=== PATIENT | female | born 1965 | race Caucasian/White ===

== ENCOUNTER 2019-06-28 19:13 | Emergency (ER) | payer MEDICAID, OTHER ==
[2019-06-28] MEDS ORDERED: HYDROmorphone 1 MG/ML Syringe IVPUSH ONE (19:55)
[2019-06-28] MEDS ORDERED: Ondansetron 4 MG/2 ML SDV IVPUSH ONE (19:56)
[2019-06-28] MEDS ORDERED: Sodium Chloride 0.9% 1,000 ML IV SCH (20:00)
--- NOTE | 2019-06-28 20:17 | EDM.PDOC ---
ED HPI GENERAL MEDICAL PROBLEM - General Chief Complaint: General Stated Complaint: PAIN UPPER RT SIDE Time Seen by Provider: 06/28/19 19:21 Source of Information: Reports: Patient, RN History Limitations: Reports: No Limitations - History of Present Illness INITIAL COMMENTS - FREE TEXT/NARRATIVE: chief complaint: right upper quadrant abdominal pain This is a 53 year female presents to ER with her Sister, She reports woke up well this morning, ate lunch didn't feel too well but resolved, then this evening ate pork ribs meal then develops acute right upper abdominal pain. Rates pain at 10 out of 10. the pain comes in waves, feels nauseated. reports history of kidney stones but this is different more intense pain. reports this has not happened to her before. Onset: Today, Sudden Onset Date: 06/28/19 Duration: Hour(s):, Getting Worse Location: Reports: Abdomen (right upper abdomen) Quality: Reports: Sharp, Stabbing Improves with: Reports: None Worsens with: Reports: Movement Associated Symptoms: Reports: Loss of Appetite, Nausea/Vomiting - Related Data Allergies Allergy/AdvReac Type Severity Reaction Status Date / Time Iodine and Iodide Containing Allergy Anaphylactic Verified 06/28/19 19:41 Produc Shock Home Meds: Home Meds Citalopram Hydrobromide [Celexa] 1 tab PO DAILY 06/28/19 [History] hydrOXYzine HCL [Hydroxyzine HCl] 1 tab PO DAILY 06/28/19 [History] lamoTRIgine [Lamictal] 1 tab PO DAILY 06/28/19 [History] Past Medical History Genitourinary History: Reports: Renal Calculus - Past Surgical History Female Surgical History: Reports: Hysterectomy Musculoskeletal Surgical History: Reports: Carpal Tunnel Social & Family History - Tobacco Use Smoking Status *Q: Never Smoker - Recreational Drug Use Recreational Drug Use: No Drug Use in Last 12 Months: No ED ROS GENERAL - Review of Systems Review Of Systems: See Below Constitutional: Reports: Malaise, Decreased Appetite HEENT: Reports: No Symptoms, Glasses Respiratory: Reports: No Symptoms Cardiovascular: Reports: No Symptoms Endocrine: Reports: No Symptoms GI/Abdominal: Reports: Abdominal Pain, Decreased Appetite, Nausea : Reports: No Symptoms Musculoskeletal: Reports: No Symptoms Skin: Reports: No Symptoms Neurological: Reports: No Symptoms Psychiatric: Reports: No Symptoms Hematologic/Lymphatic: Reports: No Symptoms Immunologic: Reports: No Symptoms ED EXAM, GENERAL - Physical Exam Exam: See Below Exam Limited By: No Limitations General Appearance: Alert, WD/WN, Severe Distress (laying on left side, curled up and holding right side.) Eye Exam: Bilateral Eye: EOMI, PERRL Ears: Normal External Exam Ear Exam: Bilateral Ear: Auricle Normal, Canal Normal, TM normal Nose: Normal Inspection, Normal Mucosa, No Blood Throat/Mouth: Normal Inspection, Normal Lips, Normal Teeth, Normal Gums, Normal Oropharynx, Normal Voice, No Airway Compromise Head: Atraumatic, Normocephalic Neck: Normal Inspection, Supple, Non-Tender, Full Range of Motion Respiratory/Chest: No Respiratory Distress, Lungs Clear, Normal Breath Sounds, No Accessory Muscle Use, Chest Non-Tender Cardiovascular: Normal Peripheral Pulses, Regular Rate, Rhythm, No Edema, No Gallop, No JVD, No Murmur, No Rub Peripheral Pulses: 2+: Radial (L), Radial (R), Dorsalis Pedis (L), Dorsalis Pedis (R) GI/Abdominal: Guarding (right upper abdomen), Tender, Other (positive Marino's sign) (Female) Exam: Deferred Rectal (Female) Exam: Deferred Back Exam: Normal Inspection, Full Range of Motion, Muscle Spasm (right upper back tense) Extremities: Normal Inspection, Normal Range of Motion, Non-Tender, Normal Capillary Refill, No Pedal Edema Neurological: No Motor/Sensory Deficits Psychiatric: Tearful Skin Exam: Warm, Dry, Intact, Normal Color, No Rash Lymphatic: No Adenopathy Course - Vital Signs Last Recorded V/S: Last Vital Signs Temp 36.7 C 06/28/19 19:48 Pulse 78 06/28/19 19:48 Resp 16 06/28/19 19:48 BP 146/72 H 06/28/19 19:48 Pulse Ox 98 06/28/19 19:48 - Orders/Labs/Meds Orders: Active Orders 24 hr Category Date Time Status Abdomen Ltd [US] Urgent Exams 06/28/19 19:54 Taken UA W/MICROSCOPIC [URIN] Urgent Lab 06/28/19 19:34 Ordered Magnesium Citrate [Citrate of Magnesia] Med 06/28/19 22:15 Once 296 ml PO ONETIME ONE Sodium Chloride 0.9% [Normal Saline] 1,000 ml Med 06/28/19 20:00 Active IV ASDIRECTED Medication Orders Sodium Chloride (Normal Saline) 1,000 mls @ 999 mls/hr IV ASDIRECTED FABIO Last Admin: 06/28/19 20:57 Dose: 999 mls/hr Labs: Laboratory Tests 06/28/19 06/28/19 Range/Units 20:03 20:03 WBC 6.3 (4.5-11.0) K/uL RBC 4.52 (3.30-5.50) M/uL Hgb 13.3 (12.0-15.0) g/dL Hct 40.1 (36.0-48.0) % MCV 89 (80-98) fL MCH 29 (27-31) pg MCHC 33 (32-36) % Plt Count 216 (150-400) K/uL Neut % (Auto) 50 (36-66) % Lymph % (Auto) 40 (24-44) % [place] % (Auto) 7 H (2-6) % Eos % (Auto) 2 (2-4) % Baso % (Auto) 1 (0-1) % Sodium 139 L (140-148) mmol/L Potassium 3.8 (3.6-5.2) mmol/L Chloride 102 (100-108) mmol/L Carbon Dioxide 31 (21-32) mmol/L Anion Gap 9.8 (5.0-14.0) mmol/L BUN 14 (7-18) mg/dL Creatinine 1.2 H (0.6-1.0) mg/dL Est Cr Clr Drug Dosing 41.38 mL/min Estimated GFR (MDRD) 47 L (>60) Glucose 106 (74-106) mg/dL Calcium 8.8 (8.5-10.1) mg/dL Magnesium 1.9 (1.8-2.4) mg/dL Total Bilirubin 0.3 (0.2-1.0) mg/dL AST 15 (15-37) U/L ALT 28 (12-78) U/L Alkaline Phosphatase 103 (46-116) U/L Total Protein 7.6 (6.4-8.2) g/dL Albumin 3.8 (3.4-5.0) g/dL Globulin 3.8 H (2.3-3.5) g/dL Albumin/Globulin Ratio 1.0 L (1.2-2.2) Amylase 58 (25-115) U/L Lipase 257 (73-393) U/L Meds: Medications Generic Name Dose Route Start Last Admin Trade Name Tim PRN Reason Stop Dose Admin Sodium Chloride 1,000 mls @ 999 mls/hr 06/28/19 20:00 06/28/19 20:57 Normal Saline IV 999 mls/hr ASDIRECTED FABIO Administration Discontinued Medications Generic Name Dose Route Start Last Admin Trade Name Tim PRN Reason Stop Dose Admin Hydromorphone HCl 1 mg 06/28/19 19:55 06/28/19 20:56 Dilaudid IVPUSH 06/28/19 19:56 1 mg ONETIME ONE Administration Ondansetron HCl 4 mg 06/28/19 19:56 06/28/19 20:56 Zofran IVPUSH 06/28/19 19:57 4 mg ONETIME ONE Administration - Re-Assessments/Exams Free Text/Narrative Re-Assessment/Exam: 06/28/19 20:24 discussed with Ms. Rebolledo -will evaluated for gallbladder disease -labs, cbc, cmp, amylase, lipase, mg++,urine with micro -ultrasound limited abdomen to rule out gallbladder disease -medicate for pain: IV Normal Saline 999ml/hr, IV Dilaudid 1 mg now, IV Zofran 4 mg now, IV Protonix 40 mg now Ms. Rebolledo agrees with plan of care. 06/28/19 21:15 labs- no acute findings Ultrasound abdomen- no findings will ordered Abdomen-pelvis without contrast to further evaluate given Dilaudid, Zofran and IV fluids for comfort- appears more comfortable Ms. Rebolledo agrees with plan of care. 06/28/19 22:16 CT abdomen pelvis- preliminary report: small bilateral pleural effusion with mild bibasilar opacity. moderate stool in the colon. small stone left. kidney. The abdominal IVC and plevic deep venous system diffusely very small in caliber except for the common femoral veins. small amount of free fluid in brian pelvis posteriorly of uncertain etiology. appendix is normal. few colonic diverticula without evidence of diverticulitis. uterus is absent. discussed result with Ms. Rebolledo, will treat for constipation. advise to return to ER if develops any fever, chills, nausea, vomiting, increase pain, or has any concerns. Ms. Rebolledo agrees with plan of care. Departure - Departure Time of Disposition: 22:22 Disposition: Home, Self-Care 01 Condition: Good Clinical Impression: Constipation, Abdominal pain - Discharge Information *PRESCRIPTION DRUG MONITORING PROGRAM REVIEWED*: Not Applicable *COPY OF PRESCRIPTION DRUG MONITORING REPORT IN PATIENT DEMIAN: Not Applicable Instructions: Abdominal Pain, Adult, [id number], Constipation, Adult, Easy-to -Read Referrals: PCP,None [Primary Care Provider] - Forms: ED Department Discharge Care Plan Goals: Abdominal pain and Constipation -Magnesium Citrate when home drink half the bottle if no stool within 4 hours drink the other half of the bottle. drink plenty of fluids -rest -push fluids -high fibre diet -follow up in [facility] this week, will call [place], [place]. Return to ER for any fever, chills, nausea, vomiting, increase pain, not improved or any concerns. Sepsis Event Note - Evaluation Sepsis Screening Result: No Definite Risk - Focused Exam Vital Signs: Vital Signs Temp Pulse Resp BP Pulse Ox 06/28/19 19:48 36.7 C 78 16 146/72 H 98 06/28/19 19:29 36.7 C 78 16 146/72 H 98 Date Exam was Performed: 06/28/19 Time Exam was Performed: 22:16 - Problem List & Annotations (1) Abdominal pain SNOMED Code(s): 82428823 Code(s): R10.9 - UNSPECIFIED ABDOMINAL PAIN Status: Acute Priority: High Current Visit: Yes Qualifiers: Abdominal location: right upper quadrant Qualified Code(s): R10.11 - Right upper quadrant pain (2) Constipation SNOMED Code(s): 65686965 Code(s): K59.00 - CONSTIPATION, UNSPECIFIED Status: Acute Priority: High Current Visit: Yes Qualifiers: Constipation type: unspecified constipation type Qualified Code(s): K59.00 - Constipation, unspecified - Problem List Review Problem List Initiated/Reviewed/Updated: Yes - My Orders Last 24 Hours: My Active Orders 06/28/19 19:34 UA W/MICROSCOPIC [URIN] Urgent 06/28/19 19:54 Abdomen Ltd [US] Urgent 06/28/19 20:00 Sodium Chloride 0.9% [Normal Saline] 1,000 ml IV ASDIRECTED 06/28/19 22:15 Magnesium Citrate [Citrate of Magnesia] 296 ml PO ONETIME ONE - Assessment/Plan Last 24 Hours: My Active Orders 06/28/19 19:34 UA W/MICROSCOPIC [URIN] Urgent 06/28/19 19:54 Abdomen Ltd [US] Urgent 06/28/19 20:00 Sodium Chloride 0.9% [Normal Saline] 1,000 ml IV ASDIRECTED 06/28/19 22:15 Magnesium Citrate [Citrate of Magnesia] 296 ml PO ONETIME ONE Plan: Abdominal pain and Constipation -Magnesium Citrate when home drink half the bottle if no stool within 4 hours drink the other half of the bottle. drink plenty of fluids -rest -push fluids -high fibre diet -follow up in Primary Care Clinic this week, will call [facility] [place], [place]. Return to ER for any fever, chills, nausea, vomiting, increase pain, not improved or any concerns.
--- NOTE | 2019-06-28 22:06 | CRLCT ---
Indication: Right-sided abdominal pain. Patient has history of iodine contrast allergy. Technique: CT from the lung bases to the pubic symphysis without intravenous contrast. Please note that all CT scans at this facility use dose modulation, iterative reconstruction, and/or weight-based dosing when appropriate to reduce radiation dose to as low as reasonably achievable. Comparison: Comparisons Findings: Hepatobiliary: The liver demonstrates attenuation. The gallbladder is normal. Spleen: Normal. Pancreas: Normal. Adrenal glands: Right and left adrenal gland are normal. Kidneys: 3 millimeter nonobstructing calculus in left kidney is seen. There is no right or left hydronephrosis or suspicious mass. Pelvis: Urinary bladder is normal. There postoperative changes from hysterectomy. GI: There is a moderate amount of stool throughout the colon. The small bowel and stomach are normal. Vessels/lymph nodes: The abdominal aorta is normal in caliber. The IVC is small. There is no adenopathy. Soft tissues: There is no abdominal hernia. Bones: There are no lytic or blastic bone lesions. Lung bases: Mild bilateral dependent atelectasis is seen. Impression: 1. Postoperative changes from prior hysterectomy. 2. 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 3. Benign 2 millimeter nonobstructing calculus left kidney. Please note that all CT scans at this facility use dose modulation, iterative reconstruction, and/or weight-based dosing when appropriate to reduce radiation dose to as low as reasonably achievable. Dictated by Erwin Sears MD @ Jun 29 2019 9:48AM Signed by Dr. Erwin Sears @ Jun 29 2019 9:57AM
[2019-06-28] MEDS ORDERED: Magnesium Citrate Solution 296 ML Bottle PO ONE (22:15)
--- NOTE | 2019-06-29 12:42 | US ---
Abdomen Ltd CLINICAL HISTORY: Right upper quadrant pain COMPARISON: None. TECHNIQUE: Real-time images were obtained through the right upper quadrant. FINDINGS: The liver is free of mass or biliary dilatation. Echotexture is homogeneous throughout. The gallbladder has a normal appearance. The common bile duct measures 3 mm. The pancreas appears within normal limits. The right kidney has a normal appearance. The IVC is normal. IMPRESSION: Normal right upper quadrant ultrasound
== END 2019-06-28 22:40 | disposition home or self-care (01) ==
LOC: JP.ED 19:13
DX: K59.00 Constipation, unspecified (principal); Z91.041 Radiographic dye allergy status; Z79.899 Other long term (current) drug therapy
CPT/HCPCS: 36415; 74176; 76705; 80053; 82150; 83690; 83735; 85025; 96361; 96374; 96375; 99284; A9270; J1170; J2405; J7030

== ENCOUNTER 2020-09-09 13:38 | Emergency (ER) | payer MEDICAID ==
[2020-09-09] MEDS ORDERED: Ondansetron 4 MG/2 ML SDV IVPUSH ONE (14:13)
[2020-09-09] MEDS ORDERED: Sodium Chloride 0.9% 1,000 ML IV SCH (14:15)
--- NOTE | 2020-09-09 14:28 | EDM.PDOC ---
ED HPI GENERAL MEDICAL PROBLEM - General Chief Complaint: General Stated Complaint: MEDICAL VIA [facility] Time Seen by Provider: 09/09/20 14:00 Source of Information: Reports: Patient, EMS History Limitations: Reports: No Limitations - History of Present Illness INITIAL COMMENTS - FREE TEXT/NARRATIVE: This is a 54 year old female presenting after a syncopal episode. The patient reports that she donated blood earlier today, as she has done previously without complication in the past. She went to eat lunch after donating blood and about 20 minutes later she was sitting at the table eating when she suddenly felt dizzy and lightheaded, sweaty, nauseated. She reports that everything then went dark for a second or two, but she never fell to the floor or anything. She recalls somebody then asking her if she was ok. She did not have any chest pain or SOB prior to or with this episode. She does report that at the time of the event, she also developed a global severe headache that is still present. She reports that her whole body feels "shaky" and weak. She is still feeling somewhat nauseated as well. She reports that she has donated blood multiple times in the past and never had this happen before. However, she reports that today the process happened much quicker than usual and she was finished filling the bag more quickly than normal. - Related Data Allergies Allergy/AdvReac Type Severity Reaction Status Date / Time Iodine and Iodide Containing Allergy Severe Anaphylactic Verified 09/09/20 13:45 Produc Shock Home Meds: Home Meds Citalopram Hydrobromide [Celexa] 1 tab PO DAILY 06/28/19 [History] hydrOXYzine HCL [Hydroxyzine HCl] 1 tab PO DAILY 06/28/19 [History] lamoTRIgine [Lamictal] 1 tab PO DAILY 06/28/19 [History] Past Medical History Genitourinary History: Reports: Renal Calculus Other Musculoskeletal History: bilat elbow surgery Psychiatric History: Reports: Anxiety, Bipolar, Depression - Infectious Disease History Infectious Disease History: Reports: None - Past Surgical History Female Surgical History: Reports: Hysterectomy Musculoskeletal Surgical History: Reports: Carpal Tunnel Social & Family History - Tobacco Use Tobacco Use Status *Q: Never Tobacco User ED ROS GENERAL - Review of Systems Review Of Systems: See Below Constitutional: Reports: Diaphoresis. Denies: Fever, Chills HEENT: Reports: No Symptoms Respiratory: Reports: No Symptoms. Denies: Shortness of Breath Cardiovascular: Denies: Chest Pain Endocrine: Reports: No Symptoms GI/Abdominal: Reports: Nausea. Denies: Abdominal Pain, Vomiting Musculoskeletal: Reports: No Symptoms Skin: Reports: No Symptoms Neurological: Reports: Headache Psychiatric: Reports: No Symptoms Hematologic/Lymphatic: Reports: No Symptoms Immunologic: Reports: No Symptoms ED EXAM, GENERAL - Physical Exam Exam: See Below Exam Limited By: No Limitations General Appearance: Alert, No Apparent Distress Eye Exam: Bilateral Eye: PERRL Nose: Normal Inspection Throat/Mouth: Normal Inspection, Normal Voice, Other (MMM) Head: Atraumatic, Normocephalic Neck: Non-Tender, Full Range of Motion Respiratory/Chest: No Respiratory Distress, Lungs Clear, Normal Breath Sounds Cardiovascular: Regular Rate, Rhythm GI/Abdominal: Soft, Non-Tender Extremities: Normal Range of Motion, No Pedal Edema Neurological: Alert, Oriented, CN II-XII Intact, Normal Cognition, Normal Gait, No Motor/Sensory Deficits Psychiatric: Normal Affect, Normal Mood Skin Exam: Warm, Dry. No: Pallor #1 Interpretation EKG Date: 09/09/20 Time: 14:45 Rhythm: NSR P-Wave: Present Comparison: NA - No Prior EKG EKG Interpretation Comments: Minimal ST depression in the lateral leads #2 Interpretation EKG Date: 09/09/20 Time: 16:08 Rhythm: NSR P-Wave: Present Comparison: No Change EKG Interpretation Comments: Minimal ST depression in lateral leads - Unchanged from earlier EKG Course - Vital Signs Last Recorded V/S: Last Vital Signs Temp 97 F 09/09/20 13:54 Pulse 60 09/09/20 13:55 Resp 14 09/09/20 13:54 BP 103/62 09/09/20 13:55 Pulse Ox 98 09/09/20 13:54 Orthostatic Blood Pressure [ 131/71 Standing] Orthostatic Blood Pressure [ 123/68 Sitting] Orthostatic Blood Pressure [ 111/65 Supine] - Orders/Labs/Meds Orders: Active Orders 24 hr Category Date Time Status EKG Documentation Completion [RC] ASDIRECTED Care 09/09/20 14:12 Active EKG Documentation Completion [RC] ASDIRECTED Care 09/09/20 15:51 Active Orthostatic Vital Signs [RC] ASDIRECTED Care 09/09/20 14:14 Active Sodium Chloride 0.9% [Normal Saline] 1,000 ml Med 09/09/20 14:15 Active IV ASDIRECTED EKG 12 Lead [EK] Stat Ther 09/09/20 14:11 Ordered EKG 12 Lead [EK] Stat Ther 09/09/20 15:50 Ordered Medication Orders Sodium Chloride (Normal Saline) 1,000 mls @ 1,000 mls/hr IV ASDIRECTED FABIO Last Admin: 09/09/20 14:38 Dose: 1,000 mls/hr Documented by: [id number] Labs: Laboratory Tests 09/09/20 09/09/20 09/09/20 Range/Units 14:30 14:30 17:00 WBC 5.7 (4.5-11.0) K/uL RBC 4.11 (3.30-5.50) M/uL Hgb 11.1 L D (12.0-15.0) g/dL Hct 34.7 L (36.0-48.0) % MCV 84 (80-98) fL MCH 27 (27-31) pg MCHC 32 (32-36) % Plt Count 181 (150-400) K/uL Neut % (Auto) 59.3 (36-66) % Lymph % (Auto) 31.6 (24-44) % [place] % (Auto) 6.5 H (2-6) % Eos % (Auto) 2.4 (2-4) % Baso % (Auto) 0.2 (0-1) % Sodium 140 (140-148) mmol/L Potassium 4.0 (3.6-5.2) mmol/L Chloride 106 (100-108) mmol/L Carbon Dioxide 27 (21-32) mmol/L Anion Gap 7.1 (5.0-14.0) mmol/L BUN 14 (7-18) mg/dL Creatinine 0.8 (0.6-1.0) mg/dL Est Cr Clr Drug Dosing 61.37 mL/min Estimated GFR (MDRD) > 60 (>60) Glucose 141 H (74-106) mg/dL Calcium 8.1 L (8.5-10.1) mg/dL Troponin I < 0.017 < 0.017 (0.000-0.056) ng/mL Meds: Medications Generic Name Dose Route Start Last Admin Trade Name Tim PRN Reason Stop Dose Admin Sodium Chloride 1,000 mls @ 1,000 mls/hr 09/09/20 14:15 09/09/20 14:38 Normal Saline IV 1,000 mls/hr ASDIRECTED FABIO Administration Discontinued Medications Generic Name Dose Route Start Last Admin Trade Name Tim PRN Reason Stop Dose Admin Acetaminophen 1,000 mg 09/09/20 15:24 09/09/20 15:39 Acetaminophen 500 Mg Tab PO 09/09/20 15:25 1,000 mg ONETIME ONE Administration Diphenhydramine HCl 50 mg 09/09/20 16:05 09/09/20 16:25 Diphenhydramine 25 Mg Cap PO 09/09/20 16:06 50 mg ONETIME ONE Administration Ondansetron HCl 4 mg 09/09/20 14:13 09/09/20 14:38 Ondansetron 4 Mg/2 Ml Sdv IVPUSH 09/09/20 14:14 4 mg ONETIME ONE Administration Departure - Departure Time of Disposition: 17:09 Disposition: Home, Self-Care 01 Condition: Good Clinical Impression: Syncope - Discharge Information Instructions: Near-Syncope, Syncope Referrals: PCP,None [Primary Care Provider] - Forms: ED Department Discharge Additional Instructions: The exact cause of your symptoms is not entirely clear at this time - it could be related to donating blood earlier. Your evaluation today has not revealed any other concerning causes of your symptoms and it is safe for you to go home. Please follow up with your primary care provider within the next 1 week. If you have any further symptoms such as further fainting/passing out episodes, shortness of breath, chest pain, or other concerning symptoms, please return to the emergency department for re-evaluation. Sepsis Event Note (ED) - Evaluation Sepsis Screening Result: No Definite Risk - Focused Exam Vital Signs: Vital Signs Temp Pulse Resp BP Pulse Ox 09/09/20 13:55 60 103/62 09/09/20 13:54 97 F 61 14 112/61 98 09/09/20 13:46 97 F 61 14 112/61 98 - Problem List Review Problem List Initiated/Reviewed/Updated: Yes - My Orders Last 24 Hours: My Active Orders 09/09/20 14:11 EKG 12 Lead [EK] Stat 09/09/20 14:12 EKG Documentation Completion [RC] ASDIRECTED 09/09/20 14:14 Orthostatic Vital Signs [RC] ASDIRECTED 09/09/20 14:15 Sodium Chloride 0.9% [Normal Saline] 1,000 ml IV ASDIRECTED 09/09/20 15:50 EKG 12 Lead [EK] Stat 09/09/20 15:51 EKG Documentation Completion [RC] ASDIRECTED - Assessment/Plan Last 24 Hours: My Active Orders 09/09/20 14:11 EKG 12 Lead [EK] Stat 09/09/20 14:12 EKG Documentation Completion [RC] ASDIRECTED 09/09/20 14:14 Orthostatic Vital Signs [RC] ASDIRECTED 09/09/20 14:15 Sodium Chloride 0.9% [Normal Saline] 1,000 ml IV ASDIRECTED 09/09/20 15:50 EKG 12 Lead [EK] Stat 09/09/20 15:51 EKG Documentation Completion [RC] ASDIRECTED Assessment:: This is a pleasant 54 year old female presenting after a brief syncopal or near syncopal episode. Differential diagnosis considered includes but is not limited to arrhythmia, PE, orthostatic hypotension, vasovagal episode, hypoglycemia, TIA/stroke, vertigo, seizure, among others. She has a slightly low BP on arrival 100's/60's, but is otherwise hemodynamically stable. She has a completely normal neurologic exam. However, given that she complaints of sudden onset of headache associated with this episode, I did consider SAH in the differential diagnosis and obtained a noncontrast head CT. This was negative for acute intracranial pathology. History is not suggestive of seizure. EKG was obtained and showed very minimal ST depression in the lateral leads, no prior EKG for comparison. A repeat EKG obtained while in the ED was unchanged. Troponin was negative x 2. I have low suspicion that this episode was cardiac in etiology. Low suspicion for PE at this time. Her hemoglobin is slightly low at 11, but she did just donate blood so I am not overly concerned about this as she denies any bleeding. She did start to feel like her throat was scratchy, which she associated with allergic reactions in the past so we did give her benadryl. There was no other evidence of allergic reaction on exam and no evidence of anaphylaxis. she did feel better after the benadryl. It is possible her syncopal episode was related to her recent blood donation. Her evaluation today did not reveal any other concerning etiology of her symptoms. Therefore, I do think it is appropriate for her to be discharged home and follow up with her primary care provider within the next week. She was instructed to return to the ED for any new or worsening symptoms, including further syncopal episodes, chest pain, SOB, or other concerning symptoms.
--- NOTE | 2020-09-09 14:48 | CT ---
Head wo Cont CLINICAL HISTORY: Severe headache COMPARISON: None TECHNIQUE: Transverse scans were obtained from the base of the skull through the vertex without IV contrast on a multislice, multidetector CT scanner. Auto dosage reduction and iterative reconstruction techniques employed. FINDINGS: No focal abnormal parenchymal density is identified. There is no mass effect, hemorrhage, or extraaxial collection. The basal cisterns and sulci over the convexities are normal. The ventricles are normal. IMPRESSION: No acute intracranial process
[2020-09-09] MEDS ORDERED: Acetaminophen 500 MG Tab PO ONE (15:24)
[2020-09-09] MEDS ORDERED: diphenhydrAMINE 25 MG Cap PO ONE (16:05)
== END 2020-09-09 17:31 | disposition home or self-care (01) ==
LOC: JP.ED 13:38
DX: R55 Syncope and collapse (principal); Z91.041 Radiographic dye allergy status; Z79.899 Other long term (current) drug therapy
CPT/HCPCS: 36415; 70450; 80048; 84484; 85025; 93005; 96374; 99284; A9270; J2405; J7030

== ENCOUNTER 2022-01-09 16:20 | Emergency (ER) | payer OTHER ==
[2022-01-09] MEDS ORDERED: HYDROmorphone 1 MG/ML Syringe IVPUSH ONE (16:48)
[2022-01-09] MEDS ORDERED: Propofol 200 MG/20 ML SDV ONE (17:48)
== END 2022-01-09 19:30 | disposition home or self-care (01) ==
LOC: JP.ED 16:20
DX: S93.04XA Dislocation of right ankle joint, initial encounter (principal); S82.891A Other fracture of right lower leg, initial encounter for closed fracture; Z91.041 Radiographic dye allergy status; Z91.013 Allergy to seafood; Z79.899 Other long term (current) drug therapy; W01.0XXA Fall on same level from slipping, tripping and stumbling without subsequent striking against object, initial encounter
CPT/HCPCS: 27840; 73600; 73610; 96374; 99284; J1170; J2704

== ENCOUNTER 2022-01-10 08:28 | Day surgery (SDC) | payer OTHER, MEDICAID ==
[~2022-01-10 08:28] MED LIST: Bupivacaine 0.5% 30 ML SDV ONE
[2022-01-10] MEDS ORDERED: Nozin Nasal Sanitizer NASBOTH ONE (08:58)
[2022-01-10] MEDS ORDERED: Lactated Ringers 1,000 ML IV SCH (09:00)
[2022-01-10 09:35] LABS: ESTIMATED GFR 76 mL/min (>60)
[2022-01-10] MEDS ORDERED: ceFAZolin 2 GM in Sodium Chloride 0.9% 50 ML IV ONE (10:00)
[2022-01-10] MEDS ORDERED: fentaNYL 250 MCG/5 ML SDV ONE ×2 (11:21→12:22)
[2022-01-10] MEDS ORDERED: Neostigmine Methylsulfate 1 MG/ML 5 ML Syringe ONE (11:22)
[2022-01-10] MEDS ORDERED: Propofol 200 MG/20 ML SDV ONE (11:22)
[2022-01-10] MEDS ORDERED: Glycopyrrolate 0.2 MG/ML 5 ML MDV ONE (11:22)
[2022-01-10] MEDS ORDERED: Rocuronium 50 MG/5 ML Vial ONE (11:22)
[2022-01-10] MEDS ORDERED: Ondansetron 4 MG/2 ML SDV ONE (11:22)
[2022-01-10] MEDS ORDERED: Dexamethasone 4 MG/ML SDV ONE (11:22)
[2022-01-10] MEDS ORDERED: Succinylcholine 200 MG/10 ML MDV ONE (11:22)
[2022-01-10] MEDS ORDERED: Ketorolac 30 MG/ML SDV ONE (12:59)
[2022-01-10] MEDS ORDERED: Morphine 2 MG/ML SYRINGE IVPUSH ONE (13:23)
[2022-01-10] MEDS ORDERED: Acetaminophen/HYDROcodone 325-5 MG Tab PO PRN (14:10)
== END 2022-01-10 15:07 | disposition home or self-care (01) ==
LOC: JP.SDS 08:28
PROVIDERS: ATTEND Specialist
DX: S82.851A Displaced trimalleolar fracture of right lower leg, initial encounter for closed fracture (principal); F41.9 Anxiety disorder, unspecified; F32.A Depression, unspecified; E66.9 Obesity, unspecified; Z91.013 Allergy to seafood; Z91.041 Radiographic dye allergy status; Z79.899 Other long term (current) drug therapy; Z68.29 Body mass index [BMI] 29.0-29.9, adult; W19.XXXA Unspecified fall, initial encounter
CPT/HCPCS: 36415; 76000; 80053; 85027; A9270-GY; C1713; J0330; J0690; J1100; J1885; J2270; J2405; J2704; J2710; J3010; J3490; J7120

== ENCOUNTER 2022-09-10 06:12 | Day surgery (SDC) | payer OTHER, MEDICAID ==
[2022-09-10 06:44] LABS: BASOPHILS ABSOLUTE AUTO 0.04 K/uL (0.00-0.10); BASOPHILS PERCENT AUTO 0.8 % (0.1-1.3); EOSINOPHILS PERCENT AUTO 3.8 % (0.0-5.4); HEMOGLOBIN 13.2 g/dL (11.2-15.5); IMMATURE GRAN ABSOLUTE AUTO 0.04 K/uL (0.00-0.23); IMMATURE GRAN PERCENT AUTO 0.8 % (0.0-0.7); LYMPHOCYTES ABSOLUTE AUTO 2.17 K/uL (0.8-3.3); MEAN CORPUSCULAR HEMOGLOBIN 29.3 pg (31.6-35.5); MEAN CORPUSCULAR HGB CONC 33.8 g/dL (31.6-35.5); MEAN CORPUSCULAR VOLUME 86.5 fL (81.4-99.0); MONOCYTES ABSOLUTE AUTO 0.35 K/uL (0.20-0.90); MONOCYTES PERCENT AUTO 6.6 % (3.3-12.6); NEUTROPHILS ABSOLUTE AUTO 2.49 K/uL (1.0-7.6); PLATELET COUNT,PLT 201 K/uL (130-375); RED BLOOD CELL COUNT 4.51 M/uL (3.77-5.24); WHITE BLOOD CELL COUNT,WBC 5.3 K/uL (3.2-11.0)
[2022-09-10] MEDS ORDERED: Bupivacaine 0.5% 50 ML MDV ONE (06:50)
[2022-09-10] MEDS ORDERED: Lidocaine 1% 50 ML MDV ONE (06:50)
[2022-09-10 06:59] LABS: ANION GAP 10.1 mmol/L (5.0-14.0); BLOOD UREA NITROGEN,BUN 13 mg/dL (7-18); CALCIUM 8.3 mg/dL (8.5-10.1); CARBON DIOXIDE,CO2 25 mmol/L (21-32); CHLORIDE,CL 105 mmol/L (100-108); CREATININE 0.9 mg/dL (0.6-1.0); ESTIMATED GFR 76 mL/min (>60); GLUCOSE RANDOM 99 mg/dL (74-106); POTASSIUM,K 3.7 mmol/L (3.6-5.2); SODIUM,NA 140 mmol/L (140-148)
[2022-09-10] MEDS ORDERED: Lactated Ringers 1,000 ML IV SCH (07:00)
[2022-09-10] MEDS ORDERED: Nozin Nasal Sanitizer NASBOTH ONE (07:00)
[2022-09-10] MEDS ORDERED: ceFAZolin 1 GM in Premix Bag 1 BAG IV ONE (07:30)
[2022-09-10] MEDS ORDERED: Midazolam 1 MG/ML 2 ML SDV ONE (07:50)
[2022-09-10] MEDS ORDERED: Propofol 200 MG/20 ML SDV ONE (07:50)
[2022-09-10] MEDS ORDERED: fentaNYL 100 MCG/2 ML SDV ONE (07:50)
== END 2022-09-10 10:37 | disposition home or self-care (01) ==
LOC: JP.SDS 06:12
PROVIDERS: ATTEND Specialist
DX: T84.84XA Pain due to internal orthopedic prosthetic devices, implants and grafts, initial encounter (principal); F41.9 Anxiety disorder, unspecified; F32.A Depression, unspecified; E66.9 Obesity, unspecified; Z91.013 Allergy to seafood; Z88.8 Allergy status to other drugs, medicaments and biological substances
CPT/HCPCS: 20680; 36415; 80048; 85025; A9270; J0690; J2250; J2704; J3010; J3490; J7120; J2001